=== PATIENT | female | born 2000 | race African-American/Black ===

== ENCOUNTER 2019-07-15 19:57 | Emergency (ER) | payer MEDICAID ==
[~2019-07-15] VITALS: Ht 167.6 cm; Wt 77.1 kg
[2019-07-15 20:25] VITALS: BP_SYST 112
--- NOTE | 2019-07-15 20:31 | NUR ---
Patient triaged and placed in waiting room. VSS and patient appears in no acute distress at this time. Accompanied by sister, awaiting available bed, and MD notified of need for MSE.
--- NOTE | 2019-07-15 21:27 | NUR ---
Patient left without being seen. No further treatment provided. ER MD aware
--- NOTE | 2019-07-15 21:27 | NUR ---
Called pt x 3, no answer
== END 2019-07-15 21:27 | disposition left against medical advice (07) ==
LOC: SED 19:57
DX: R42 Dizziness and giddiness (principal); Z53.21 Procedure and treatment not carried out due to patient leaving prior to being seen by health care provider

== ENCOUNTER 2019-09-18 18:11 | Emergency (ER) | payer MEDICAID ==
[~2019-09-18] VITALS: Ht 167.6 cm; Wt 83.5 kg
[2019-09-18 18:21] VITALS: BP_SYST 131
--- NOTE | 2019-09-18 21:03 | NUR ---
Patient left without being seen. No further treament provided. ER MD aware
--- NOTE | 2019-09-18 21:03 | NUR ---
Called pt in x 3, no answer
== END 2019-09-18 21:03 | disposition left against medical advice (07) ==
LOC: SED 18:11
DX: O26.891 Other specified pregnancy related conditions, first trimester (principal); R07.89 Other chest pain; Z53.21 Procedure and treatment not carried out due to patient leaving prior to being seen by health care provider; Z3A.12 12 weeks gestation of pregnancy

== ENCOUNTER 2019-10-26 10:33 | Emergency (ER) | payer MEDICAID ==
[~2019-10-26] VITALS: Ht 165.1 cm; Wt 84.4 kg
[2019-10-26 10:33] VITALS: BP_SYST 94
[2019-10-26 11:26] VITALS: BP_SYST 104
== END 2019-10-26 11:26 | disposition home or self-care (01) ==
LOC: SED 10:33
DX: O26.892 Other specified pregnancy related conditions, second trimester (principal); R05 Cough; R09.81 Nasal congestion
CPT/HCPCS: 99281

== ENCOUNTER 2019-12-24 22:16 | Observation (INO) | payer MEDICAID ==
[~2019-12-24] VITALS: Ht 165.1 cm; Wt 84.8 kg
== END 2019-12-24 23:47 | disposition home or self-care (01) ==
LOC: SPU 22:16
PROVIDERS: ADMIT Specialist; ATTEND Specialist
DX: O26.892 Other specified pregnancy related conditions, second trimester (principal); M54.9 Dorsalgia, unspecified; Z3A.26 26 weeks gestation of pregnancy
CPT/HCPCS: 59025; 81002; G0378

== ENCOUNTER 2021-05-18 20:49 | Emergency (ER) | payer SELFPAY ==
[~2021-05-18] VITALS: Ht 167.6 cm; Wt 81.6 kg
[2021-05-18 21:00] VITALS: BP_SYST 135
--- NOTE | 2021-05-18 21:27 | NUR ---
pPatient to ER bed chair 1 to gown for evaluation. Side rails up.
--- NOTE | 2021-05-18 21:27 | NUR ---
Pt came into ER with complaint of right hand first digit pain 11/07. Pt reports jamming her nail on a car door. Pt has fake nails on and the fake nail and nail are both lifted from the finger. Cap refill less than 2 and no loss of sensation. Pt nail bed is exposed. Pt sitting up in chair no distress noted at this time.
--- NOTE | 2021-05-18 21:39 | NUR ---
Pt nail bed cleansed with sterile saline flush. Pt tolerated well.
--- NOTE | 2021-05-18 22:15 | NUR ---
ER at bedside examining patient.
[2021-05-18] MEDS ORDERED: LIDOCAINE 1% 10 MG/ML, 20 ML MDV INJ ONE (22:30)
--- NOTE | 2021-05-18 22:50 | NUR ---
Pt moved to bed 8.
--- NOTE | 2021-05-18 22:56 | NUR ---
Dr. Stephens at bedside administering lidocaine.
--- NOTE | 2021-05-18 23:26 | NUR ---
Dr. Stephens removed the nail. Sire cleansed with sterile saline and betadine. Dressed with bacitracin and rolled gauze. Pt tolerated well.
--- NOTE | 2021-05-18 23:36 | NUR ---
Care endorsed to Neda SWARTZ.
[2021-05-19] MEDS ORDERED: IBUP-1969 PO (00:01)
[2021-05-19] MEDS ORDERED: IBUPROFEN 800 MG TABLET PO ONE (00:15)
[2021-05-19 00:26] VITALS: BP_SYST 135
--- NOTE | 2021-05-19 00:28 | NUR ---
Patient given written and verbal discharge instructions and verbalizes understanding. DR. SASKIA SAMANO MD discussed with patient the results and treatment provided. Patient in stable condition. ID arm band removed. Rx of IBUPROFEN given. Patient educated on pain management and to follow up with PMD. Pain Scale 0/10. Opportunity for questions provided and answered. Medication side effect fact sheet provided.
== END 2021-05-19 00:26 | disposition home or self-care (01) ==
LOC: SED 20:49
DX: S61.101A Unspecified open wound of right thumb with damage to nail, initial encounter (principal); W23.0XXA Caught, crushed, jammed, or pinched between moving objects, initial encounter; Y93.89 Activity, other specified; Y92.89 Other specified places as the place of occurrence of the external cause; Y99.8 Other external cause status
CPT/HCPCS: 11730; 99284; J2001